=== PATIENT | female | born 1985 | race Caucasian/White ===

== ENCOUNTER 2016-12-25 19:17 | Emergency (ER) | payer SELFPAY ==
[~2016-12-25] VITALS: Ht 160 cm; Wt 52.3 kg
[~2016-12-25 19:17] MED LIST: MOTRIN 600600 MG/TAB PO; PERCOCET 325 MG1 TA2 PO
[2016-12-25 19:21] VITALS: BP 127/75; TEMP 98
[2016-12-25] MEDS ORDERED: NORCO 325 MG-51 TAB PO (20:53)
[2016-12-25] MEDS ORDERED: DOXYCYCLINE HY100 MG PO (20:53)
[2016-12-25 21:15] VITALS: PULSE 84
== END 2016-12-25 21:20 | disposition home or self-care (01) ==
LOC: COL.ER 19:17
DX: L02.411 Cutaneous abscess of right axilla (principal); F17.210 Nicotine dependence, cigarettes, uncomplicated; Z98.890 Other specified postprocedural states
CPT/HCPCS: J1170

== ENCOUNTER 2017-04-01 12:47 | Emergency (ER) | payer SELFPAY ==
[~2017-04-01] VITALS: Ht 160 cm; Wt 55.5 kg
[~2017-04-01 12:47] MED LIST changes: +DOXYCYCLINE HY100 MG PO; +NORCO 325 MG-51 TAB PO
[2017-04-01 12:49] VITALS: BP 111/76; PULSE 97; TEMP 99.1
== END 2017-04-01 14:21 | disposition left against medical advice (07) ==
LOC: COL.ER 12:47
DX: N76.4 Abscess of vulva (principal); Z53.21 Procedure and treatment not carried out due to patient leaving prior to being seen by health care provider

== ENCOUNTER 2017-12-09 03:53 | Outpatient (CLI) | payer SELFPAY ==
[2017-12-09 04:15] VITALS: BP 126/85; PULSE 80; TEMP 98.6
[2017-12-09 05:20] VITALS: BP 126/85; PULSE 80; TEMP 98.6
[2017-12-09] MEDS ORDERED: FLINTSTONES1 CTB PO (05:30)
[2017-12-09] MEDS ORDERED: MOTRIN 200200 MG/TAB PO (05:31)
[2017-12-09 06:48] VITALS: BP 107/65; PULSE 74; TEMP 98.5
== END 2017-12-09 07:10 | disposition home or self-care (01) ==
LOC: LDRO 03:53
DX: O46.93 Antepartum hemorrhage, unspecified, third trimester (principal); Z3A.32 32 weeks gestation of pregnancy
CPT/HCPCS: J0702; J7120

== ENCOUNTER 2019-01-26 06:58 | Emergency (ER) | payer SELFPAY ==
[~2019-01-26] VITALS: Ht 152.4 cm; Wt 48.2 kg
[~2019-01-26 06:58] MED LIST changes: +FLINTSTONES1 CTB PO; +MOTRIN 200200 MG/TAB PO; +ZANTAC 7575 MG PO
[2019-01-26 07:12] VITALS: BP 124/84; PULSE 108; TEMP 97.9
== END 2019-01-26 08:35 | disposition left against medical advice (07) ==
LOC: COL.ER 06:58
DX: L98.9 Disorder of the skin and subcutaneous tissue, unspecified (principal)

== ENCOUNTER 2020-12-05 22:44 | Emergency (ER) | payer MEDICAID ==
[~2020-12-05] VITALS: Ht 160 cm; Wt 51.4 kg
[2020-12-05 23:29] VITALS: TEMP 97.6
[2020-12-06 01:47] VITALS: BP 110/75; PULSE 85
== END 2020-12-06 01:47 | disposition home or self-care (01) ==
LOC: COL.ER 22:44
DX: S30.860A Insect bite (nonvenomous) of lower back and pelvis, initial encounter (principal); S40.862A Insect bite (nonvenomous) of left upper arm, initial encounter; S40.861A Insect bite (nonvenomous) of right upper arm, initial encounter; S30.861A Insect bite (nonvenomous) of abdominal wall, initial encounter; F17.210 Nicotine dependence, cigarettes, uncomplicated; W57.XXXA Bitten or stung by nonvenomous insect and other nonvenomous arthropods, initial encounter
CPT/HCPCS: J1100

== ENCOUNTER 2020-12-20 22:14 | Emergency (ER) | payer MEDICAID ==
[~2020-12-20] VITALS: Ht 160 cm; Wt 52.3 kg
[2020-12-20 22:30] VITALS: TEMP 98.9
[2020-12-21 00:15] VITALS: BP 132/70; PULSE 80
== END 2020-12-21 00:15 | disposition home or self-care (01) ==
LOC: COL.ER 22:14
DX: S93.401A Sprain of unspecified ligament of right ankle, initial encounter (principal); F17.210 Nicotine dependence, cigarettes, uncomplicated; X50.1XXA Overexertion from prolonged static or awkward postures, initial encounter

== ENCOUNTER 2021-10-02 12:21 | Emergency (ER) | payer MEDICAID ==
[~2021-10-02] VITALS: Ht 160 cm; Wt 50.9 kg
[2021-10-02 12:44] VITALS: BP 118/86; TEMP 98.3
[2021-10-02] MEDS ORDERED: NORCO 325 MG-51 TAB PO (13:04)
[2021-10-02] MEDS ORDERED: AMOXICILLIN 8751 TAB PO (13:04)
[2021-10-02 13:10] VITALS: PULSE 74
== END 2021-10-02 13:10 | disposition home or self-care (01) ==
LOC: COL.ER 12:21
DX: K08.89 Other specified disorders of teeth and supporting structures (principal)